=== PATIENT | female | born 1965 | race Two or more races ===

== ENCOUNTER 2016-12-06 18:34 | Emergency (ER) | payer OTHER ==
[~2016-12-06] VITALS: Ht 172.7 cm; Wt 77.1 kg
[2016-12-06 19:43] LABS: Urine Bilirubin Negative (Negative); Urine Blood Negative /uL (Negative); Urine Color Yellow (Yellow); Urine Glucose Normal (Normal); Urine Nitrite Negative (Negative); Urine RBC <1 /hpf (0 - 4); Urine Squamous Epithelial Cell FEW /hpf (<5); Urine Urobilinogen Normal (Negative)
[2016-12-06 19:44] LABS: Urine Ketone 2+ (Negative)
[2016-12-06] MEDS ORDERED: SODIUM CHLORIDE 0.9% 1,000 ML IVB ONE (20:36)
[2016-12-06] MEDS ORDERED: PIPERACILLIN-TAZOB 3.375GM 100 ML IV ONE (20:45)
[2016-12-06 20:58] LABS: Basophils # (auto) 0 uL; Basophils % (auto) 0.1 % (0.0-2.0); CONDITION AutoValidated; Eosinophils # (auto) 0 uL; Eosinophils % (auto) 0.1 % (0.0-7.0); Hematocrit 41.6 % (36.0-46.0); Hemoglobin 14.2 g/dL (12.2-16.2); Lymphocytes # (auto) 1.4 uL; Lymphocytes % (auto) 8.8 % (10.0-50.0); Mean Corpuscular Hemoglobin 30.4 pg (28.0-32.0); Mean Corpuscular Hgb Conc. 34.2 g/dL (32.0-36.0); Mean Corpuscular Volume 88.7 fL (80.0-100.0); Mean Platelet Volume 9.9 fL (7.4-10.4); Monocytes # (auto) 1.2 uL; Monocytes % (auto) 7.6 % (0.0-12.0); Neutrophils # (auto) 13.4 uL; Neutrophils % (auto) 83.4 % (37.0-80.0); Platelet Count (auto) 241 10^3/uL (140-450); Red Cell Distribution Width 13.4 % (11.6-16.0); White Blood Cell 16.1 10^3/uL (4.4-10.8)
[2016-12-06 21:15] LABS: INR 0.98 (0.9-1.15); Partial Thromboplastin Time 26.5 sec (22.64-33.71); Prothrombin Time 10.7 sec (9.37-12.3)
[2016-12-06 21:23] LABS: Albumin 3.5 g/dL (3.4-5.0); BUN/Creatinine Ratio 25.9; Calcium 8.5 mg/dL (8.5-10.1); Potassium 3.3 mmol/L (3.5-5.1)
[2016-12-06 21:26] LABS: Total Protein 6.8 g/dL (6.4-8.2)
[2016-12-06 21:27] LABS: Magnesium 2.2 mg/dL (1.6-2.6)
[2016-12-06] MEDS ORDERED: MORPHINE SULFATE 4 MG/ML SYRG IV ONE (21:45)
[2016-12-06] MEDS ORDERED: ONDANSETRON HCL 4 MG/2 ML VIAL IV ONE (21:45)
== END 2016-12-07 | disposition short-term general hospital (02) ==
LOC: ER 18:37
DX: K35.80 Unspecified acute appendicitis (principal); Z90.710 Acquired absence of both cervix and uterus; Z90.49 Acquired absence of other specified parts of digestive tract
CPT/HCPCS: 36415; 74176; 80053; 81001; 83605; 83735; 84484; 85025; 85610; 85730; 87040; 94761; 96365; 96366; 96375; 99285; J2270; J2405; J2543